=== PATIENT | male | born 1990 ===

== ENCOUNTER 2019-08-26 22:53 | Emergency (ER) | payer OTHER ==
[~2019-08-26] VITALS: Ht 190.5 cm; Wt 70.6 kg
--- NOTE | 2019-08-27 00:08 | NUR ---
THIS IS A 29 YO MALE WHO PRESENTS TO THE ER C/O "DISCOMFORT AND FLUTTERY PAIN IN MY UPPER ABDOMEN". PT C/O GENERAL MAILAISE, FATIGUE AND THIS ABDOMINAL COMFORT X 2 WEEKS. PT RECENTLY ARRIVED IN [place] FOR WORK ON THURSDAY FROM [place]. PT AO X 4. SKIN PWD. RESP EVEN AND UNLABORED. BUTCH JACOBS AT BEDSIDE FOR EVAL..
[2019-08-27 00:33] LABS: BASOPHILS # (AUTO) 0.01 x10^3/uL (0-0.1); BASOPHILS % (AUTO) 0 % (0-1); EOSINOPHILS # (AUTO) 0.02 x10^3/uL (0-0.4); EOSINOPHILS % (AUTO) 1 % (1-7); LYMPHOCYTES # (AUTO) 1.17 x10^3/uL (1-3.4); LYMPHOCYTES % (AUTO) 25 % (22-44); MD NO; MEAN CORPUSCULAR HEMOGLOBIN 31.3 pg (27.5-34.5); MEAN CORPUSCULAR HGB CONC 33.9 g/dL (33.2-36.2); MEAN CORPUSCULAR VOLUME 92.5 fL (81-97); MEAN PLATELET VOLUME 9.8 fL (7.4-10.4); MONOCYTES # (AUTO) 0.31 x10^3/uL (0.2-0.8); MONOCYTES % (AUTO) 7 % (2-9); NEUTROPHILS # (AUTO) 3.15 x10^3/uL (1.8-6.8); NEUTROPHILS % (AUTO) 68 % (42-75); PLATELET COUNT 201 x10^3/uL (130-400); RED BLOOD COUNT 4.72 x10^6/uL (4.38-5.82); RED CELL DISTRIBUTION WIDTH 13.2 % (9.4-14.8)
[2019-08-27 00:39] LABS: ALANINE AMINOTRANSFERASE 20 U/L (12-78); ALBUMIN 4.5 g/dL (3.4-5.0); ANION GAP 7 mmol/L (5-15); CALCIUM 8.7 mg/dL (8.5-10.1); CHLORIDE 108 mmol/L (98-107); CREATININE 1.15 mg/dL (0.7-1.3)
[2019-08-27 00:41] LABS: ALKALINE PHOSPHATASE 63 U/L (45-117); BILIRUBIN,TOTAL 0.9 mg/dL (0.2-1.0); TOTAL PROTEIN 7.6 g/dL (6.4-8.2)
[2019-08-27 01:03] VITALS: BP 122/66
--- NOTE | 2019-08-27 01:07 | NUR ---
REPORT TO JERMAINE TONEY WHO ASSUMED CARE OF PT. PT PENNIEY RESTING ON GURNEY. NAD NOTED. RESP EVEN AND UNLABORED. PT AWARE WE ARE WAITING FOR IMAGING RESULTS. PT ON CONT BP, CARDIAC AND O2 MONITORS. CALL LIGHT WITHIN REACH.
--- NOTE | 2019-08-27 01:31 | NUR ---
ALL RESULTS BACK AT THIS TIME CHART UP FOR RECHECK
--- NOTE | 2019-08-27 02:05 | NUR ---
Patient/Caregiver given discharge instructions and they have confirmed that they understand the instructions. Patient ambulatory with steady gait.
== END 2019-08-27 02:06 | disposition home or self-care (01) ==
LOC: ED 08-27 02:03
DX: R53.83 Other fatigue (principal); F17.210 Nicotine dependence, cigarettes, uncomplicated; R53.1 Weakness
CPT/HCPCS: 36415; 71045; 80053; 85025; 93005; 99285